=== PATIENT | female | born 1995 | race Caucasian/White ===

== ENCOUNTER 2020-01-15 07:58 | Emergency (ER) | payer BC, MEDICAID ==
[~2020-01-15] VITALS: Ht 160 cm; Wt 74.8 kg
[2020-01-15 08:10] VITALS: BP 129/85
[2020-01-15] MEDS ORDERED: Morphine Sulfate 4mg/ml Inj (IV USE ONLY) IVP ONE ×2 (08:15→09:30)
--- NOTE | 2020-01-15 08:37 | Emergency Room Report ---
History of Present Illness General Chief Complaint: Abdominal Pain Source: Patient Present Illness HPI 24-year-old female history of H. 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 Patient History Past Medical History: see triage record Last Menstrual Period: 01/01/20 Now: No : 0 Para: 0 Reviewed Nursing Documentation: PMH: Agreed; PSxH: Agreed Nursing Documentation-PMH Past Medical History: No Stated History Review of Systems All Other Systems: negative except mentioned in HPI Physical Exam Vital Signs Date Time Temp Pulse Resp B/P (MAP) Pulse Ox O2 Delivery O2 Flow Rate FiO2 01/15/20 08:00 98.4 98 17 135/89 (104) 100 Room Air Sp02 EP Interpretation: reviewed, normal General Appearance: well appearing, no apparent distress, alert Head: normocephalic, atraumatic Eyes: bilateral eye PERRL, bilateral eye EOMI ENT: uvula midline, moist mucus membranes Neck: supple, thyroid normal, supple/symm/no masses Respiratory: lungs clear, no respiratory distress, no retraction, no accessory muscle use Cardiovascular #1: normal peripheral pulses, regular rate, rhythm, no edema, no gallop, no murmur Gastrointestinal: soft, no guarding, no rebound, tenderness - Mild tenderness right upper quadrant Musculoskeletal: normal inspection Neurologic: alert, oriented x3 Psychiatric: mood/affect normal Skin: no rash, warm/dry Medical Decision Making Diagnostic Impression: Primary Impression: Cholecystitis ER Course 24-year-old female presents with intra-abdominal pain, differential diagnosis includes cholecystitis cholelithiasis, gastritis, diverticulitis Labs Significant for an elevated white count, patient found to have cholecystitis, on CT Initial plan for admission patient was given pain medication morphine, Zofran. Evaluation 11:42 AM patient is feeling better comfortable, patient states she has a leave to catch a flight to [facility] antibiotics will be prescribed, patient given pain medications. The patient has requested to leave the ED against medical advice. The patient reason(s) for leaving include, but are not limited to, the following: I have to catch a flight to [place]. I believe this patient is of sound mind and competent to refuse medical care. The patient is responding and asking questions appropriately. The patient is oriented to person, place and time. The patient is not psychotic, delusional, suicidal, homicidal or hallucinating. The patient demonstrates a normal mental capacity to make decisions regarding their healthcare. The patient is clinically sober and does not appear to be under the influence of any illicit drugs at this time. The patient has been advised of the risks, in layman terms, of leaving AMA which include, but are not limited to , coma, permanent disability, loss of current lifestyle, delay in diagnosis. Alternatives have been offered - the patient remains steadfast in their wish to leave. The patient has been advised that should they change their mind they are welcome to return to this hospital, or any other, at any time. The patient understands that in no way does an AMA discharge mean that I do not want them to have the best medical care available. To this end, I have provided appropriate prescriptions, referrals, and discharge instructions. The patient did sign AMA paperwork. The above discussion was witnessed by another member of staff. Laboratory Tests Test 01/15/20 08:15 01/15/20 09:34 White Blood Count 14.3 K/UL (4.8-10.8) H Red Blood Count 4.88 M/UL (4.20-5.40) Hemoglobin 14.6 G/DL (12.0-16.0) Hematocrit 44.7 % (37.0-47.0) Mean Corpuscular Volume 92 FL (80-99) Mean Corpuscular Hemoglobin 29.9 PG (27.0-31.0) Mean Corpuscular Hemoglobin Concent 32.7 G/DL (32.0-36.0) Red Cell Distribution Width 11.1 % (11.6-14.8) L Platelet Count 337 K/UL (150-450) Mean Platelet Volume 7.1 FL (6.5-10.1) Neutrophils (%) (Auto) 76.7 % (45.0-75.0) H Lymphocytes (%) (Auto) 16.0 % (20.0-45.0) L Monocytes (%) (Auto) 5.0 % (1.0-10.0) Eosinophils (%) (Auto) 1.9 % (0.0-3.0) Basophils (%) (Auto) 0.4 % (0.0-2.0) Sodium Level 136 MMOL/L (136-145) Potassium Level 3.7 MMOL/L (3.5-5.1) Chloride Level 100 MMOL/L (98-107) Carbon Dioxide Level 28 MMOL/L (21-32) Anion Gap 8 mmol/L (5-15) Blood Urea Nitrogen 18 mg/dL (7-18) Creatinine 0.8 MG/DL (0.55-1.30) Estimated Glomerular Filtration Rate > 60 mL/min (>60) Glucose Level 108 MG/DL (74-106) H Calcium Level 10.0 MG/DL (8.5-10.1) Total Bilirubin 0.5 MG/DL (0.2-1.0) Aspartate Amino Transferase (AST) 18 U/L (15-37) Alanine Aminotransferase (ALT) 21 U/L (12-78) Alkaline Phosphatase 61 U/L (46-116) Total Protein 8.2 G/DL (6.4-8.2) Albumin 4.3 G/DL (3.4-5.0) Globulin 3.9 g/dL Albumin/Globulin Ratio 1.1 (1.0-2.7) Lipase 219 U/L (73-393) Human Chorionic Gonadotropin, Quant < 1 mIU/mL (1-6) L Urine Color Pale yellow Urine Appearance Slightly cloudy Urine pH 6.5 (4.5-8.0) Urine Specific [place] 1.015 (1.005-1.035) Urine Protein Negative (NEGATIVE) Urine Glucose (UA) Negative (NEGATIVE) Urine Ketones Negative (NEGATIVE) Urine Blood 1+ (NEGATIVE) H Urine Nitrite Negative (NEGATIVE) Urine Bilirubin Negative (NEGATIVE) Urine Urobilinogen Normal MG/DL (0.0-1.0) Urine Leukocyte Esterase 3+ (NEGATIVE) H Urine RBC 0-2 /HPF (0 - 2) Urine WBC 5-10 /HPF (0 - 2) H Urine Squamous Epithelial Cells Moderate /LPF (NONE/OCC) H Urine Bacteria Few /HPF (NONE) Urine HCG, Qualitative Negative (NEGATIVE) CT/MRI/US Diagnostic Results CT/MRI/US Diagnostic Results : Impression Comparison: none Findings: There appears to be one or more stones within the gallbladder neck. Gallbladder wall is edematous. There is no biliary ductal dilatation. Liver demonstrates some focal fatty change in the usual location adjacent to the falciform ligament, is otherwise unremarkable. The pancreas, spleen, adrenals, kidneys are unremarkable. No renal or ureteral calculi, hydronephrosis, or hydroureter. The bladder is unremarkable. The uterus and ovaries are unremarkable. Lack of enteric contrast limits assessment of the GI tract. The appendix is normal. No small bowel distention. No free or loculated intraperitoneal gas or fluid. No evidence of colonic diverticulosis or diverticulitis. The included lung bases are clear. The bones are unremarkable Impression: Cholelithiasis. Gallbladder wall edema is suspicious for acute cholecystitis. If there is high clinical suspicion, nuclear medicine hepatobiliary scan may be useful to confirm Limited assessment of the GI tract, due to lack of enteric contrast administration Incidental finding of focal fatty change within the liver The CT scanner at [facility] is accredited by the [employer] and the scans are performed using protocols designed to limit radiation exposure to as low as reasonably achievable to attain images of sufficient resolution adequate for diagnostic evaluation. Dictated By: Ozzy Morrison MD Electronically Signed By: Ozzy Morrison MD Signed Date/Time 01/15/20 1038 CC: Jasmeet Jones MD Last Vital Signs Date Time Temp Pulse Resp B/P (MAP) Pulse Ox O2 Delivery O2 Flow Rate FiO2 01/15/20 08:10 98 17 Room Air 01/15/20 08:00 98.4 135/89 (104) 100 Disposition: AGAINST MEDICAL ADVICE Condition: Stable Scripts Metronidazole* (FLAGYL*) 500 Mg Tablet 500 MG ORAL THREE TIMES A DAY, #21 TAB Prov: Jasmeet Jones MD 01/15/20 Ciprofloxacin Hcl* (CIPROFLOXACIN HCL*) 500 Mg Tablet 500 MG ORAL Q12H, #14 TAB 0 Refills Prov: Jasmeet Jones MD 01/15/20 Ondansetron (Zofran) 4 Mg Tablet 4 MG ORAL Q8H PRN for Nausea & Vomiting, #10 TAB 0 Refills Prov: Jasmeet Jones MD 01/15/20 Hydrocodone Bit/Acetaminophen 5-325* (NORCO 5-325 TABLET*) 1 Each Tablet 1 TAB ORAL Q6H PRN for FOR PAIN, #12 TAB 0 Refills Prov: Jasmeet Jones MD 01/15/20 Ibuprofen* (MOTRIN*) 600 Mg Tablet 600 MG ORAL Q6H PRN for For Pain, #30 TAB 0 Refills Prov: Jasmeet Jones MD 01/15/20 Referrals: [facility] Patient Instructions: Cholecystitis, [id number] Additional Instructions: The patient was provided with discharge instructions, notified to follow-up with a primary care doctor and or specialist in the next 24-48 hours, and to return to the ED if they have worsening of their symptoms. Please note that this report is being documented using DRAGON technology. This can lead to erroneous entry secondary to incorrect interpretation by the dictating instrument. PLEASE GO TO YOUR NEAREST ED ONCE YOU ARRIVE IN [place], YOU'RE LEAVING AGAINST MEDICAL ADVICE Jasmeet Jones MD Jan 15, 2020 08:37
[2020-01-15 08:38] LABS: BASOPHILS % (AUTO) 0.4 % (0.0-2.0); EOSINOPHILS % (AUTO) 1.9 % (0.0-3.0); HEMATOCRIT 44.7 % (37.0-47.0); HEMOGLOBIN 14.6 G/DL (12.0-16.0); MEAN CORPUSCULAR VOLUME 92 FL (80-99); NEUTROPHILS % (AUTO) 76.7 % (45.0-75.0); PLATELET COUNT 337 K/UL (150-450); RED BLOOD COUNT 4.88 M/UL (4.20-5.40); RED CELL DISTRIBUTION WIDTH 11.1 % (11.6-14.8); WHITE BLOOD COUNT 14.3 K/UL (4.8-10.8)
[2020-01-15 08:53] LABS: ANION GAP 8 mmol/L (5-15); BLOOD UREA NITROGEN 18 mg/dL (7-18); CARBON DIOXIDE 28 MMOL/L (21-32); CHLORIDE 100 MMOL/L (98-107); CREATININE 0.8 MG/DL (0.55-1.30); POTASSIUM 3.7 MMOL/L (3.5-5.1); SODIUM 136 MMOL/L (136-145)
[2020-01-15 09:02] LABS: ALANINE AMINOTRANSFERASE 21 U/L (12-78); ALBUMIN 4.3 G/DL (3.4-5.0); ALBUMIN/GLOBULIN RATIO 1.1 (1.0-2.7); ALKALINE PHOSPHATASE 61 U/L (46-116); ASPARTATE AMINO TRANSFERASE 18 U/L (15-37); BILIRUBIN,TOTAL 0.5 MG/DL (0.2-1.0)
[2020-01-15] MEDS ORDERED: Omnipaque-300 100ml vial INJ PRN (09:30)
--- NOTE | 2020-01-15 10:03 | Diagnostic Imaging Report ---
Indication: Abdominal pain Technique: Huertas-scale and duplex images of the upper abdomen were obtained Comparison: none Findings: Gallbladder contains sludge and possible tiny stones. Gallbladder wall is borderline thickened, measuring 3 mm in thickness. No pericholecystic fluid or edema. Sonographic Garner's sign is negative. Common bile duct measures for mm in diameter. No intrahepatic biliary ductal dilatation. Liver demonstrates normal echogenicity, no focal abnormality. Portal vein and hepatic veins are patent. Pancreas is unremarkable. Spleen is unremarkable. Left kidney measures 10.4 cm in length. Right kidney measures 10.5 cm length. Both kidneys demonstrate normal echogenicity. There is no hydronephrosis. No focal abnormality . Abdominal aorta is partially obscured. Visualized portions are nonaneurysmal Impression: Gallbladder sludge and questionable tiny stones. Borderline gallbladder wall thickening raises possibility of early acute cholecystitis. Consider hepatobiliary nuclear scan if there is high clinical suspicion Negative for dilated bile ducts No other significant abnormality Note inability to visualize portions of the abdominal aorta
[2020-01-15 10:18] VITALS: BP 126/70
[2020-01-15 10:20] LABS: APPEARANCE,URINE SLIGHTLY CLOUDY; BILIRUBIN, URINE NEGATIVE (NEGATIVE); COLOR,URINE PALE YELLOW; GLUCOSE, URINE (UA) NEGATIVE (NEGATIVE); KETONES,URINE NEGATIVE (NEGATIVE); LEUKOCYTE ESTERASE ,URINE 3+ (NEGATIVE); NITRITE,URINE NEGATIVE (NEGATIVE); PH,URINE 6.5 (4.5-8.0); PROTEIN,URINE NEGATIVE (NEGATIVE); UROBILINOGEN,URINE NORMAL MG/DL (0.0-1.0)
--- NOTE | 2020-01-15 10:44 | Diagnostic Imaging Report ---
Clinical Indication: Epigastric pain and right upper quadrant pain Technique: No oral contrast utilized, per emergency room physician request IV administration nonionic contrast. Venous phase spiral acquisition obtained through the abdomen and pelvis. Multiplanar reconstructions were generated. Total dose length product 471 mGycm. CTDIvol(s) 8.6 mGy. Dose reduction achieved using automated exposure control Comparison: none Findings: There appears to be one or more stones within the gallbladder neck. Gallbladder wall is edematous. There is no biliary ductal dilatation. Liver demonstrates some focal fatty change in the usual location adjacent to the falciform ligament, is otherwise unremarkable. The pancreas, spleen, adrenals, kidneys are unremarkable. No renal or ureteral calculi, hydronephrosis, or hydroureter. The bladder is unremarkable. The uterus and ovaries are unremarkable. Lack of enteric contrast limits assessment of the GI tract. The appendix is normal. No small bowel distention. No free or loculated intraperitoneal gas or fluid. No evidence of colonic diverticulosis or diverticulitis. The included lung bases are clear. The bones are unremarkable Impression: Cholelithiasis. Gallbladder wall edema is suspicious for acute cholecystitis. If there is high clinical suspicion, nuclear medicine hepatobiliary scan may be useful to confirm Limited assessment of the GI tract, due to lack of enteric contrast administration Incidental finding of focal fatty change within the liver The CT scanner at [facility] is accredited by the [employer] and the scans are performed using protocols designed to limit radiation exposure to as low as reasonably achievable to attain images of sufficient resolution adequate for diagnostic evaluation.
[2020-01-15] MEDS ORDERED: NORCO 5-325 TA1 EAC1 ORAL (11:32)
[2020-01-15] MEDS ORDERED: ZOFRAN4 MG ORAL (11:32)
[2020-01-15] MEDS ORDERED: IBUPROFEN600 M1 ORAL (11:32)
[2020-01-15] MEDS ORDERED: METRONIDAZOLE500 MG ORAL (11:41)
[2020-01-15] MEDS ORDERED: CIPROFLOXACIN500 M2 ORAL (11:41)
[2020-01-15 11:48] VITALS: BP 134/66
== END 2020-01-15 11:48 | disposition left against medical advice (07) ==
LOC: EMR 08:15
DX: K81.9 Cholecystitis, unspecified (principal); Z53.29 Procedure and treatment not carried out because of patient's decision for other reasons
CPT/HCPCS: 36415; 74177; 76700; 80053; 81003; 81025; 83690; 84702; 85025; 96361; 96374; 96375; 96376; J2270; J2405; J7030; Q9967; Z7502; 99284